=== PATIENT | female | born 1990 | race Caucasian/White ===

== ENCOUNTER 2023-02-17 11:25 | Day surgery (SDC) | payer OTHER, SELFPAY ==
[2023-02-11 09:17] VITALS: BMI 23.8
[2023-02-17 12:14] VITALS: BMI 23.8
[2023-02-17 12:43] VITALS: BP 120/78; PULSE 83; RESP 16; TEMP 36.7; O2SAT 83
[2023-02-17] MEDS: LACTATED RINGERS 1,000 ML 42 ML IV (12:54)
[2023-02-17] MEDS: SCOPOLAMINE 1 PATCH TOP (12:58)
[2023-02-17] MEDS: ACETAMINOPHEN 325 MG TABLET 975 MG PO (13:00)
--- NOTE | 2023-02-17 14:13 | PM.HP.1 ---
History of Present Illness History of Present Illness Date Patient Seen: 02/17/23 Time Patient Seen: 14:13 Chief complaint: SDC Narrative: 32-year-old woman with a symptomatic reducible ventral hernia 5 cm here for elective open repair. Please refer to the H and P from January 2023 for further detail. No interval change in health. [facility] Medical History Anxiety Surgical History H/O wisdom tooth extraction (~2008) Social History household members: spouse Smoking Status: Never smoker alcohol intake: former Meds Home Medications and Allergies Home Medications Medication Instructions Recorded Confirmed Type No Known Home Medications 12/08/22 02/11/23 History Allergies Allergy/AdvReac Type Severity Reaction Status Date / Time vancomycin Allergy Intermediate Skin Verified 02/17/23 12:10 irritation Exam Vital Signs (past 8 hours): - 02/17/23 12:43 Temperature 98.0 F Pulse Rate 83 Respiratory Rate 16 Blood Pressure 120/78 Pulse Oximetry 83 L Oxygen Delivery Method Room Air Oxygen Delivery Method Room Air Narrative Exam Narrative: General adult woman alert oriented no acute distress Chest nonlabored respiration Extremities warm well perfused Assessment & Plan Assessment and plan (1) Ventral hernia: Qualifiers: Obstruction and gangrene presence: without obstruction or gangrene Qualified Code(s): K43.9 - Ventral hernia without obstruction or gangrene Status: Acute Assessment & Plan narrative: 32-year-old woman with a symptomatic ventral hernia 5 cm here for open elective repair. Overview of the operation was discussed. Operative risks including hemorrhage, infection, recurrence were discussed. Questions have been answered she is in agreement with this plan. She provides her written and verbal consent to proceed.
[2023-02-17] MEDS: CEFAZOLIN 2 GM/100 ML PREMIX 100 ML IV (14:30)
[2023-02-17] MEDS: BUPIVACAINE 0.25% (PF) VIAL 30 ML INJ (14:44)
--- NOTE | 2023-02-17 14:45 | SUR.OPER ---
Supine on padded OR bed, head on pillow, arms secured on padded arm boards at <90 degrees abduction, legs uncrossed, safety belt at thigh, tape over blanket over lower legs.
[2023-02-17 15:18] VITALS: BP 96/65; PULSE 59; RESP 14; TEMP 36.7; O2SAT 99
[2023-02-17 15:25] VITALS: BP 97/63; PULSE 57; RESP 14; TEMP 36.4; O2SAT 99
[2023-02-17 15:29] VITALS: BP 94/59; PULSE 80; RESP 17; TEMP 36.4; O2SAT 100
--- NOTE | 2023-02-17 15:33 | PM.OP.1 ---
Operative Date/Time/Diagnoses Date of procedure: 02/17/23 Time of procedure: 15:33 Pre-op diagnosis: Ventral hernia 5 cm Post-op diagnosis: same Procedure & Clinicians Procedure: Open repair 5 cm supraumbilical ventral hernia Same procedure as scheduled: Yes Indications: Symptomatic reducible ventral hernia Surgeon: Emilio Gunn Click Yes if Unassisted: Yes Anesthesia Type: General Operative Notes Findings: 5 cm fascial defect superior to the umbilicus containing omentum Specimen(s): none sent Estimated Blood Loss (mL): 20 Procedure in detail: Patient was brought to the operating room placed supine on the table. Bilateral lower extremity compression devices were applied. They received 2 g of Ancef prior to skin incision. Prepped and draped in sterile fashion, ioban was placed. Time-out was performed. A midline incision was made superior to the umbilicus with a knife over the palpable hernia. Hernia defect was approximately 5 cm in maximal diameter The fascia was grasped elevated and sharply opened. A towel was then placed over the visceral content to protect it out of harms way. Hernia sac was excised. Fascia was cleared from above and below in order to accommodate the mesh. I selected a Bard 8 cm cm polypropelene soft tissue mesh with the anti-adhesive surface towards the abdomen. The mesh was anchored with interrupted Ethibond such that the mesh lay under physiologic tension. The anterior sheath was then closed over the mesh. Hemostasis was checked. The subcutaneous tissue was then reapproximated using Vicryl skin closed with running 4-0 Monocryl followed by the application of Dermabond. Patient emerged from anesthesia was extubated and transferred to recovery room in stable condition. Complications: none Post-operative Condition: stable Disposition: same day surgery
[2023-02-17 15:35] VITALS: BP 97/60; PULSE 55; RESP 14; TEMP 36.5; O2SAT 100
== END 2023-02-17 16:11 | disposition home or self-care (01) ==
PROVIDERS: PCP Nurse Practitioner Family; Referring Provider Surgery; Visit Provider Surgery
PROC: (CPT 49593; principal; 2023-02-17 13:15)
DX: K43.9 Ventral hernia without obstruction or gangrene (principal)
CPT/HCPCS: 49593; 81025; J0690; J1100; J1885; J2250; J2405; J2704; J3010

== ENCOUNTER → 2023-04-18 09:37 | Outpatient (CLI) | payer OTHER, SELFPAY ==
--- NOTE | 2023-04-18 | DI.MRI.S_ITS ---
PROCEDURE: MR HEAD/BRAIN WO CON INDICATIONS: traumatic brain injury TECHNIQUE: Noncontrast axial T1 spin echo, axial T2 fast spin echo, sagittal and axial FLAIR, coronal T2 fast spin echo, axial gradient echo, axial diffusion and ADC through the brain. COMPARISON: None. FINDINGS: Image quality: Excellent. CSF Spaces: Basal cisterns are patent. No extra-axial fluid collections. Ventricles are normal in size and shape. Brain: No intracranial masses or hemorrhage. Hart/white matter interface is normal. Brainstem appears normal. Diffusion-weighted images demonstrate no acute infarct. No chronic ischemic insults. Normal intravascular flow voids are present. Skull and face: Calvarium has normal marrow signal. Orbits appear normal. Sinuses: Small right maxillary sinus mucous retention cyst. Sinuses and mastoids are otherwise clear. IMPRESSION: No acute intracranial findings. Normal MRI of the brain. Dictated by: Luan Villa M.D. on 04/19/2023 at 12:27 Approved by: Luan Villa M.D. on 04/19/2023 at 12:28
== END ==
PROVIDERS: PCP Nurse Practitioner Family; Referring Provider Student in an Organized Health Care Education/Training Program; Visit Provider Student in an Organized Health Care Education/Training Program
DX: Z08 Encounter for follow-up examination after completed treatment for malignant neoplasm (principal); J34.1 Cyst and mucocele of nose and nasal sinus; Z87.820 Personal history of traumatic brain injury
CPT/HCPCS: 70551